=== PATIENT | female | born 1960 | race Caucasian/White ===

== ENCOUNTER 2016-08-18 10:56 | Emergency (ER) | payer OTHER ==
--- NOTE | ~2016-08-18 | CT2 ---
[facility] A Service [facility] RADIOLOGY TEXT RESULTS PATIENT: MY OSBORNE LOCATION: [facility] : 62 UNIT #: [id number] AGE: [address]: Nadege Delacruz SEX: F ORDER DR: [id number] [facility]. [place], [place] [address] [id number] E MR#: [id number] Acc #: [id number] NAME: MY OSBORNE. : 1960 SEX: F STUDY DATE/TIME: 08/18/2016 12:17 UNIT: [facility] ROOM: STUDY DESCRIPTION: CT Abd and Pelv W Cont Attending Physician: Nadege Delacruz Pa-C Ordering Physician: Nadege Delacruz Pa-C Primary Care Physician: Nara Ruiz M.D. MEDICAL IMAGING REPORT This report is preliminary unless electronic signature is present EXAM CT abdomen and pelvis with contrast INDICATION Left flank pain for the past 2 days. PROCEDURE Contrast-enhanced CT of the abdomen and pelvis. COMPARISON 04/05/2016. TECHNIQUE This CT examination was performed with one or more of the following radiation dose reduction techniques: automatic exposure control, adjustment of mA and/or kV according to patient size, and iterative reconstruction. FINDINGS ABDOMEN WITH CONTRAST: Included lung bases clear. Liver is normal in size. Low-attenuation of the liver compared with the spleen, suggesting steatosis. The spleen, kidneys, adrenal glands, pancreas unremarkable. Previous cholecystectomy. Bowel loops are nondilated. Left-sided colonic diverticula. Focal diverticulitis in the distal descending colon. No evidence for abscess or perforation. Appendix is normal. PELVIS WITH CONTRAST: No pelvic mass or fluid. No aggressive appearing bone lesion. [facility] A Service [facility] RADIOLOGY TEXT RESULTS PATIENT: MY OSBORNE LOCATION: [facility] : 62 UNIT #: [id number] AGE: [address]: Nadege Delacruz SEX: F ORDER DR: IMPRESSION 1. Focal acute diverticulitis in the distal descending colon. No evidence for abscess or perforation. 2. Hepatic steatosis. Dictated by... Sree Willard M.D. THIS IS AN ELECTRONICALLY VERIFIED REPORT Sree Willard M.D. at 08/19/2016 9:39 AM ARMIDA/keira TD: 08/18/2016 13:15 JOB #: [id number] MEDICAL IMAGING REPORT Page 1 of 1 COPY
[2016-08-18 10:27] LABS: BASOPHIL# 0.1 X10e3 (0-0.3); BASOPHIL% 0.8 % (0-2.5); EOSINOPHIL# 0.1 X10e3 (0-0.7); EOSINOPHIL% 1.5 % (0.0-7.0); HEMATOCRIT 42.5 % (35.0-45.0); HEMOGLOBIN 13.6 gm/dL (12.0-16.0); LYMPHOCYTE# 1.8 X10e3 (1.0-3.5); LYMPHOCYTE% 20.3 % (17.0-45.0); MEAN CELL VOLUME 82.1 FL (83-96); MEAN CORPUSCULAR HEMOGLOBIN 26.3 PG (28-34); MEAN CORPUSCULAR HGB CONC 32.1 g/dL (30-36); MEAN PLATELET VOLUME 7.7 FL (6.5-11.5); MONOCYTE# 0.9 X10e3 (0-1.0); MONOCYTE% 10.9 % (3.0-12.0); NEUTROPHIL# 5.8 X10e3 (1.5-7.1); NEUTROPHIL% 66.5 % (40-75); PLATELET COUNT 221 X10e3 (140-420); RED BLOOD COUNT 5.17 X10e (3.90-5.30); RED CELL DISTRIBUTION WIDTH 16.6 % (11.0-15.5); WHITE BLOOD COUNT 8.7 X10e3 (4.0-10.5)
[2016-08-18 10:30] LABS: DIFF IND NO
[2016-08-18 10:50] LABS: ALBUMIN SERUM 3.9 g/dL (3.5-5.0); BILIRUBIN, DIRECT 0.1 mg/dL (0.0-0.2); BILIRUBIN,INDIRECT 0.5 mg/dL (0.0-0.9); BILIRUBIN,TOTAL 0.6 mg/dL (0.2-2.0); BUN/CREATININE RATIO 8.57; CALCIUM SERUM 9.8 mg/dL (8.4-10.2); CREATININE SERUM 0.7 mg/dL (0.6-1.4); GLOM FILT RATE Estimated 97.5 mL/min (>60); POTASSIUM 4.3 mmol/L (3.5-5.1); PROTEIN TOTAL SERUM 7.1 g/dL (6.0-8.3)
[~2016-08-18 10:56] MED LIST: ACID REFLUX MED; ADVAIR; ADVAIR 250-501 EACH IH; ADVAIR 2501 DISK W/D PO; ADVAIR 45-21; ADVAIR 500-501 EACH; ADVAIR 500-501 EACH IH; ADVAIR DISKU1 250/50 INH; ADVAIR DISKU1 500/50 INH; ADVAIR HFA 45-218 GM INH; ADVAIR IH; ALBUTEROL MININEB PO; ALBUTEROL17 GM INH; AMBIEN PO; AMOXICILLIN PO; ANTIVERT PO; ASPIRIN325 M1 PO; ATIVAN PO; AZITHROMYCIN250 MG PO; BACTRIM DS TABL1 TA1 PO; BACTRIM DS TABL1 TAB PO; BENADRYL; BENADRYL PO; BENADRYL25 M1 OP; BENADRYL25 M3 PO; BENADRYL25 MG PO; BENTYL20 MG PO; BENZONATATE PO; BREO INHALER; BUDEPRION XL150 MG PO; BUPROPION XL150 MG PO; CHOLESTEROL PILL; CIPRO PO; CLEOCIN HCL300 M1 PO; CLEOCIN150 MG PO; CLINDAMYCIN HC300 MG PO; CLONAZEPAM0.5 MG PO; COMBIVENT INH14.7 GM INH; COUMADIN5 MG PO; DARVOCET-N 1001 TAB PO; DEMEROL50 MG PO; DEPAKENE S50 MG/ML S; DEPAKENE S50 MG/ML S DOB; DEPAKENE S50 MG/ML S PO; DEPAKENE250 MG; DEPAKENE250 MG PO; DEPAKOTE ER PO; DEPAKOTE PO; DICYCLOMINE HCL20 MG PO; DIFLUCAN100 MG PO; DIPHENHYDRAMINE50 M1 PO; DOXYCYCLINE HY100 M1 PO; DUONEB 2.5-0.5 M3 ML NEB; FAMOTIDINE PO; FLEXERIL PO; FLEXERIL10 M1 PO; FLEXERIL10 MG PO; FLONASE16 GM; GEODAN; GEODAN PO; GEODON20 MG; GEODON80 MG; GEODON80 MG PO; HYDROCORTISONE0.9 GM TP; IMITREX PO; INDERAL LA; INDERAL LA PO; INDERAL LA60 M1 PO; INDERAL60 MG PO; KEFLEX PO; KEFLEX500 MG PO; LEVAQUIN750 M1 PO; LIDOCAINE JELLY; LIPITOR40 MG PO; LORATADINE PO; LOVENOX SUBQ; MED FOR HTN; MEDROL PO; MEDROL4 MG/DOSE- PO; METFORMIN HCL500 M1 PO; MOBIC PO; MUCINEX DM ER1 EACH PO; NAPROSYN500 MG PO; NAPROXEN; NAPROXEN PO; NAPROXEN SODIU500 MG PO; NEO-POLYMYXYIN-10 ML; NEOMYCIN-POLYMY10 M1 AU; NYSTATIN5 ML PO; OMEPRAZOLE20 M2 PO; OMEPRAZOLE40 M1 PO; ORUDIS75 M1 PO; PEPCID40 MG; PERCOCET5/325 PO; PHENERGAN PO; PHENERGAN25 M1 PO; PHENERGAN25 MG PO; PREDNISONE PO; PREDNISONE10 MG; PRILOSEC; PRILOSEC PO; PRILOSEC20 MG DOB; PRILOSEC20 MG PO; PROPANOLOL PO; PROPRANOLO20 MG/5 ML; PROPRANOLOL HCL60 M1; PROPRANOLOL HCL60 M1 PO; PROPRANOLOL PO; ROBITUSSIN100 MG/51 PO; SLEEP AID50 MG PO; SPIRIVA18 MCG; TRAMADOL HCL50 M1 PO; TYLENOL #3 PO; TYLOX 5-500 CA1 EACH PO; TYLOX 5/500 CAP1 CAP PO; ULTRAM PO; UNKNOWN BP MED; VALPROATE500 MG/5 M IV; VALPROIC A250 MG/52 PO; VALPROIC ACID; VALPROIC ACID PO; VALPROIC ACID1 GM; VALPROIC ACID1 GM PO; VALPROIC ACID250 MG PO; VICODIN 5/1 TAB 5/50 PO; VISTARIL PO; WELLBUTRIN; WELLBUTRIN PO; WELLBUTRIN SR PO; WELLBUTRIN SR150 MG PO; WELLBUTRIN75 M1; Z PACK; ZANTAC PO; ZANTAC150 M1 PO; ZANTAC150 MG PO; ZITHROMAX PO; ZITHROMAX1 G/PKT PO; ZITHROMAX500 MG PO; ZOCOR; ZOCOR20 MG PO; ZOFRAN ODT4 MG PO; ZOFRAN PO; ZYBAN SR150 MG PO; [UNRECOGNIZED DRUG - OTHER] PO; [UNRECOGNIZED DRUG - REMARK]
[2016-08-18 11:13] LABS: URINE SOURCE CLEAN CATCH
[2016-08-18 11:26] LABS: URINE APPEARANCE CLEAR; URINE BILIRUBIN NEG (NEG); URINE BLOOD NEG (NEG); URINE COLOR YELLOW; URINE GLUCOSE NEG (NEG); URINE KETONE NEG (NEG); URINE LEUKOCYTE ESTERASE 2+ (NEG); URINE NITRATE NEG (NEG); URINE PH 7.5 (5-8); URINE PROTEIN NEG (NEG); URINE SPECIFIC GRAVITY 1.004 (1.003-1.035); URINE UROBILINOGEN 0.2 MG/DL (NEG)
[2016-08-18 11:29] LABS: CULTURE INDICATED? YES; URINE BACTERIA AUWI 1+ (NEGATIVE); URINE SQUAMOUS EPITHELIAL CELL OCC /[HPF]
[2016-08-18 11:39] LABS: URBCS1 AUWI 0-2 /[HPF] (0-2)
== END 2016-08-18 14:10 | disposition home or self-care (01) ==
LOC: CED 10:56
PROVIDERS: Physician Assistant Medical
DX: K57.32 Diverticulitis of large intestine without perforation or abscess without bleeding (principal); E11.9 Type 2 diabetes mellitus without complications; I10 Essential (primary) hypertension; F31.9 Bipolar disorder, unspecified; F17.210 Nicotine dependence, cigarettes, uncomplicated; Z98.51 Tubal ligation status; Z90.49 Acquired absence of other specified parts of digestive tract; Z88.5 Allergy status to narcotic agent; Z88.1 Allergy status to other antibiotic agents
CPT/HCPCS: 36415; 74177; 80048; 80076; 81003; 85025; 87086; 99284; Q9967

== ENCOUNTER 2016-09-20 13:06 | Emergency (ER) | payer OTHER ==
--- NOTE | ~2016-09-20 | CR282 ---
[facility] A Service of [facility] RADIOLOGY TEXT RESULTS PATIENT: MY OSBORNE LOCATION: [facility] : 62 UNIT #: [id number] AGE: [address]: Nadege Delacruz SEX: F ORDER DR: [id number] [facility] [address] [place], [place] [address] [id number] E MR#: [id number] Acc #: [id number] NAME: MY OSBORNE. : 1960 SEX: F STUDY DATE/TIME: 09/20/2016 12:39 UNIT: [facility] ROOM: STUDY DESCRIPTION: CR Wrist Min 3 View Rt Attending Physician: Nadege Delacruz Pa-C Ordering Physician: Nadege Delacruz Pa-C Primary Care Physician: Nara Ruiz M.D. MEDICAL IMAGING REPORT This report is preliminary unless electronic signature is present EXAM Right wrist 3 views 09/20/2016 1239 hours HISTORY 56-year-old woman who banged wrist on door 1.5 weeks ago with persistent anterior and posterior pain. COMPARISON None. FINDINGS AP, lateral and oblique views demonstrate normal bone density. The distal radius and ulna are normal. There is no carpal bone fracture. There is trace spurring at the first carpometacarpal joint. IMPRESSION Negative right wrist. Dictated by... Brooklyn Kemp M.D. THIS IS AN ELECTRONICALLY VERIFIED REPORT Brooklyn Kemp M.D. at 09/20/2016 2:30 PM REMI/keira TD: 09/20/2016 13:08 JOB #: [id number] MEDICAL IMAGING REPORT Page 1 of 1 COPY
== END 2016-09-20 13:30 | disposition home or self-care (01) ==
LOC: CFTX 13:06
DX: S60.211A Contusion of right wrist, initial encounter (principal); I10 Essential (primary) hypertension; E11.9 Type 2 diabetes mellitus without complications; F41.9 Anxiety disorder, unspecified; F31.9 Bipolar disorder, unspecified; F17.210 Nicotine dependence, cigarettes, uncomplicated; W22.8XXA Striking against or struck by other objects, initial encounter; Y92.009 Unspecified place in unspecified non-institutional (private) residence as the place of occurrence of the external cause
CPT/HCPCS: 73110; 99283

== ENCOUNTER 2016-12-16 17:48 | Emergency (ER) | payer OTHER ==
[~2016-12-16] VITALS: Ht 170.2 cm; Wt 117.5 kg
== END 2016-12-16 20:16 | disposition home or self-care (01) ==
LOC: CED 17:48
DX: F41.9 Anxiety disorder, unspecified (principal); F30.8 Other manic episodes; J44.9 Chronic obstructive pulmonary disease, unspecified; I10 Essential (primary) hypertension; K21.9 Gastro-esophageal reflux disease without esophagitis; Z90.49 Acquired absence of other specified parts of digestive tract; E11.9 Type 2 diabetes mellitus without complications; I25.10 Atherosclerotic heart disease of native coronary artery without angina pectoris; Z88.5 Allergy status to narcotic agent; Z88.1 Allergy status to other antibiotic agents
CPT/HCPCS: 99284